=== PATIENT | male | born 2000 | race Caucasian/White ===

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

== ENCOUNTER 2023-09-17 06:59 | Emergency (ER) | payer BC ==
[~2023-09-17] VITALS: Ht 177.8 cm; Wt 68.0 kg
[~2023-09-17 06:59] MED LIST changes: +FLOVENT HF110 MCG/AC PO; +IMITREX100 M1 PO; +MEDDOSEPAK PO; +MOTRIN800 MG PO; +TESSALON PERLE100 MG PO; +VALACYCLOVIR HCL1 GM PO; +ZITHROMAX250 MG PO
[2023-09-17 07:06] VITALS: BP 107/82
[2023-09-17] MEDS ORDERED: PROZAC40 MG PO (07:13)
[2023-09-17] MEDS ORDERED: REMERON15 MG PO (07:13)
[2023-09-17] MEDS ORDERED: VISTARIL25 MG PO (07:19)
[2023-09-17] MEDS ORDERED: IPRATROPIUM-Albuterol 0.5MG-2.5MG/3 ML NEB ONE ×3 (07:25)
[2023-09-17] MEDS ORDERED: methylPREDNISolone SODIUM SUCC 125 MG/2 ML SDV IV ONE (07:25)
[2023-09-17 08:00] VITALS: BP 117/91
[2023-09-17 08:30] VITALS: BP 120/81
[2023-09-17] MEDS ORDERED: PREDNISONE50 MG PO ×2 (08:43→09:06)
[2023-09-17] MEDS ORDERED: IPRATROPIU0.5 MG/3 M IN ×2 (08:43→09:06)
[2023-09-17 09:00] VITALS: BP 122/86
== END 2023-09-17 09:15 | disposition home or self-care (01) | DRG 203 ==
LOC: ED 06:59
DX: J45.901 Unspecified asthma with (acute) exacerbation (principal)